=== PATIENT | male | born 1970 | race Caucasian/White ===

== ENCOUNTER 2021-04-20 10:39 | Emergency (ER) | payer OTHER, SELFPAY ==
--- NOTE | 2021-04-20 10:49 | ED.URI ---
HPI - URI/Sore Throat General Chief Complaint: Upper Respiratory Infection Stated Complaint: flu symptoms Time Seen by Provider: 04/20/21 11:01 Source: patient, family, RN notes reviewed and old records reviewed Mode of arrival: ambulatory Limitations: no limitations History of Present Illness HPI Narrative: 50-year-old male presents to the [facility] with complaints of sinus congestion, pressure, cough since end of February, states its been going on almost 6 weeks. Has tried [id number] products with no relief. MD elicited complaint: cough and nasal congestion Related Data Allergies Allergy/AdvReac Type Severity Reaction Status Date / Time No Known Allergies Allergy Verified 04/20/21 11:07 Review of Systems Review of Systems: All systems reviewed & are unremarkable except as noted in HPI and below Constitutional: Constitutional: Reports no additional constitutional complaints, Denies chills, Denies fever(s) and Denies headache(s) Eyes: Eyes: Reports no additional eye complaints ENT: Reports as per HPI, Denies vertigo, Denies dizziness, Denies headache(s), Reports nasal congestion and Denies sore throat Cardiovascular: Cardiovascular: Reports no additional cardiovascular complaints, Denies chest pain, Denies syncope, Denies rapid heart rate and Denies dyspnea Respiratory: Respiratory: Reports as per HPI, Reports cough, Denies dyspnea and Denies wheezing Gastrointestinal: Gastrointestinal: Reports no additional gastrointestinal complaints, Denies abdominal pain, Denies diarrhea, Denies nausea and Denies vomiting Musculoskeletal: Musculoskeletal: Reports no additional musculoskeletal complaints and Denies numbness Integumentary/Breasts: Skin/Breast: Reports system reviewed and no additional complaints, except as docu Neurologic: Reports system reviewed and no additional complaints, except as documented, Denies vertigo, Denies dizziness, Denies syncope, Denies headache(s), Denies focal weakness and Denies numbness Psychiatric: Psychiatric: Reports no additional psychiatric complaints Allergic/Immunologic: Allergic/Immunologic: Reports no additional allergic/immunologic complaints and Denies wheezing PMFSH Social History Social History (Updated 04/21/21 @ 09:02 by Imelda Mason) Gender identity (if verbalized by the patient): Male Comments At the time of my signature, I reviewed and agree with the nursing past medical, surgical, social, and family history. There is no relevant family history pertinent to the patient complaint. Exam Const: General: cooperative, no acute distress, well developed, alert and ill appearing chronically Nutritional Appearance: well nourished and obese Orientation/consciousness: patient oriented x3 Limitations: no limitations HENMT: Head: normal to inspection Ears: external ears normal, TM's normal bilaterally and EAC's normal General nose exam: Abnormal mucous membranes and turbinates present boggy bilateral and erythematous bilateral and Nasal discharge present clear Face and sinus: normal facial exam Mouth: Yes Normal oral and palatal mucosa present Throat: posterior oropharynx normal Eyes: Conjunctivae: conjunctivae normal Pupils: Equal, round and reactive pupils present Neck: Neck: normal visual inspection, no lymphadenopathy and no meningeal signs Chest: Chest palpation & inspection: normal inspection of the chest Resp: Effort & Inspection: normal respiratory effort and no use of accessory muscles Auscultation: clear to auscultation bilaterally, no crackles, no rales, no rhonchi and no wheezes Cardio: Rate: regular rate Rhythm: regular rhythm : General: Yes no CVA tenderness Back/Spine/Pelvis: Back: no CVA tenderness Skin: General skin exam: normal color Rashes: no rashes Wounds: no wounds Neuro: General: patient oriented x3, moves all extremities, no meningeal signs and no focal motor deficits Cranial nerves: Yes Equal, round and reactive pupils present Speech:
[2021-04-20 11:01] VITALS: BP 158/74; PULSE 70; RESP 20; TEMP 36.8; O2SAT 98
== END 2021-04-20 11:11 | disposition home or self-care (01) ==
PROVIDERS: Emergency Provider Nurse Practitioner; PCP Internal Medicine
DX: J32.9 Chronic sinusitis, unspecified (principal)
CPT/HCPCS: 99213; G0463

== ENCOUNTER 2022-03-14 09:00 | Emergency (ER) | payer OTHER, SELFPAY ==
[2022-03-14 09:09] VITALS: BP 173/80; PULSE 70; RESP 20; TEMP 35.9; O2SAT 96
--- NOTE | 2022-03-14 09:30 | ED.URI ---
HPI - URI/Sore Throat General Chief Complaint: Upper Respiratory Infection Stated Complaint: Fever/Chills/Dizziness Time Seen by Provider: 03/14/22 09:30 Source: patient Mode of arrival: ambulatory Limitations: no limitations History of Present Illness HPI Narrative: Mr. Sequeira is a 51-year-old male patient presenting to the clinic today with complaints of fever, chills, cough, runny nose, nasal congestion, and dizziness x4 days. He reports his symptoms began on [place]. He denies any shortness of breath or chest pain. He denies any known exposure to anybody with COVID, flu, or strep. He denies having a sore throat. States that he has been coughing a lot and this is causing him to wheeze as well MD elicited complaint: sore throat and nasal congestion Related Data Home Medications Medication Instructions Recorded Confirmed furosemide 40 mg tablet 40 mg PO DAILY 03/14/22 03/14/22 Allergies Allergy/AdvReac Type Severity Reaction Status Date / Time No Known Allergies Allergy Verified 03/14/22 09:24 Review of Systems Review of Systems: Pertinent positives per HPI. Patient denies any rash, headache, visual changes, shortness of breath, chest pain, palpitations, nausea, vomiting, diarrhea, constipation, abdominal pain, or any urinary issues. [facility] Social History Social History (Updated 04/21/21 @ 09:02 by Imelda Mason APRN) Gender identity (if verbalized by the patient): Male Comments At the time of my signature, I reviewed and agree with the nursing past medical, surgical, social, and family history. There is no relevant family history pertinent to the patient complaint. Exam Narrative: General: Well-developed,obese, in no apparent distress Head: Normocephalic, atraumatic Eyes: Pupils equally round and reactive to light bilaterally, EOM intact, sclera and conjunctive clear, no discharge, lids normal Ears: TMs intact and clear, ear canals clear, no drainage, grossly hearing normal. Nose: Nares patent, clear nasal discharge, no inflammation, no sinus tenderness. Mouth: Oral pharynx without lesions or masses, good dentition, MMM. postnasal drip Neck: Supple, trachea midline, no enlargement of anterior or posterior cervical nodes, no thyroid masses or goiter palpable. Cardio: Regular rate and rhythm, s1 and s2 normal, no murmur appreciated. Resp: Diminished lung sounds in the bases otherwise clear, no rhonchi, rales, wheezing or rubs Course Course Emergency Course: Portions of this record may have been created with voice recognition software. Level of Care: Express Care Visit Vital Signs Vital signs: Vital Signs Temperature 35.9 C L 03/14/22 09:09 Pulse Rate 70 03/14/22 09:09 Respiratory Rate 20 03/14/22 09:09 Blood Pressure 173/80 H 03/14/22 09:09 Pulse Oximetry 96 03/14/22 09:09 Oxygen Delivery Room Air 03/14/22 09:09 Temperature 35.9 C L 03/14/22 09:09 Pulse Rate 70 03/14/22 09:09 Respiratory Rate 20 03/14/22 09:09 Blood Pressure 173/80 H 03/14/22 09:09 Pulse Oximetry 96 03/14/22 09:09 Oxygen Delivery Room Air 03/14/22 09:09 Vital signs reviewed MDM - URI/Sore Throat MDM Narrative Medical decision making narrative: At the time of visit patient is resting comfortably on the exam table. I suspect the patient has bronchitis/ upper respiratory infection. Prescription for prednisone and albuterol inhaler was sent to the pharmacy. Supportive measures were discussed with the patient and he voiced understanding discharge instructions and he agrees to treatment plan Differential Diagnosis Differential diagnosis: Likely sinusitis, viral infection, influenza and pharyngitis Lab Data Labs: Influenza A Screen Negative Reference Range: Negative Influenza B Screen Negative Reference Range: Negative Discharge Plan Dis
== END 2022-03-14 10:03 | disposition home or self-care (01) ==
PROVIDERS: Emergency Provider Nurse Practitioner Family; PCP Internal Medicine
DX: J40 Bronchitis, not specified as acute or chronic (principal); J06.9 Acute upper respiratory infection, unspecified; Z20.822 Contact with and (suspected) exposure to COVID-19; I10 Essential (primary) hypertension
CPT/HCPCS: 87426; 87804; 99213; C9803; G0463

== ENCOUNTER 2023-06-30 10:20 | Emergency (ER) | payer OTHER, SELFPAY ==
--- NOTE | ~2023-06-30 | XR_ITS ---
XR foot RT min 3V 06/30/2023 11:04 INDICATION: Right first toe pain after injury PROCEDURE: 4 views right foot COMPARISON: No prior studies for comparison. FINDINGS: Fracture, dislocation or subluxation is not identified. There is mild-moderate polyarticula r osteoarthritis. Prominent degenerative calcaneal enthesophyte at the insertion of the Achilles. The soft tissues appear within normal limits. No foreign bodies are identified. IMPRESSION: 1: NO ACUTE BONE OR JOINT ABNORMALITY IDENTIFIED. Reviewed, dictated and finalized at location A.
[2023-06-30 10:39] VITALS: BP 149/92; PULSE 64; RESP 20; TEMP 36.5; O2SAT 99
--- NOTE | 2023-06-30 10:46 | ED.LOWEXIN ---
HPI - Extremity Injury (Lower) General Chief Complaint: Extremity Injury, Lower Stated Complaint: right foot pain Time Seen by Provider: 06/30/23 10:40 Source: patient Mode of arrival: ambulatory Limitations: no limitations History of Present Illness HPI Narrative: 52-year-old male with a history of bilateral lower extremity lymphedema presented for complaint of right foot pain x3 days. He states he hyperextended his foot while cutting grass the day of onset. Pain is to the great toe (1st MTP), with some redness. States he always has swelling to the foot, it is unchanged. Also reports concern for gout. Patient has been drinking tart duong juice and taking ibuprofen. Denies deformity or bruising. Related Data Home Medications Medication Instructions Recorded Confirmed furosemide 40 mg tablet 40 mg PO DAILY 03/14/22 06/30/23 Allergies Allergy/AdvReac Type Severity Reaction Status Date / Time No Known Allergies Allergy Verified 06/30/23 10:32 Review of Systems Review of Systems: CONSTITUTIONAL: Denies body aches, fever, chills CARDIOVASCULAR: Denies chest pain, palpitations, or edema. RESPIRATORY: Denies cough or dyspnea. GASTROINTESTINAL: Denies abdominal pain, nausea, vomiting, or diarrhea. SKIN: Denies rash, itching, or wounds. MUSCULOSKELETAL: Reports right foot pain NEUROLOGIC: Denies headache, numbness, tingling, or weakness. All systems reviewed & are unremarkable except as noted in HPI and below PMFSH Social History Social History Gender identity (if verbalized by the patient): Male Comments At time of signature, I have reviewed and agree with nursing past medical, surgical, social and family history unless otherwise noted. Please see nursing chart for further information. There is no relevant family history pertinent to the presenting complaint Exam Narrative: GENERAL: Well-appearing, CHEST: Speaks in full sentences. No respiratory distress. HEART: Regular rate and rhythm. Normal and equal peripheral pulses. EXTREMITIES: Right foot 1st MTP tender to palpation, with erythema to medial aspect, c/w gout. Foot has has normal strength and sensation, normal range of motion. Moderate foot edema. No ecchymosis. No open wounds, or obvious deformity; alignment normal, pulse palpable and equal bilaterally, skin warm, dry, pink. Capillary refill less than 3 seconds. BLE lymphedema noted. SKIN: Warm, dry, no rash. NEURO: Alert and oriented x3. PSYCH: Normal mood and affect Course Course Emergency Course: Patient is aware of diagnosis, understands and agrees to treatment plan. Anticipatory guidance given. Patient agrees to follow-up as directed and is aware of reasons to seek care at the emergency department. Portions of this record may have been created with voice recognition software Level of Care: Express Care Visit Vital Signs Vital signs: Vital Signs Temperature 97.7 F 06/30/23 10:39 Pulse Rate 64 06/30/23 10:39 Respiratory Rate 20 06/30/23 10:39 Blood Pressure 149/92 H 06/30/23 10:39 Pulse Oximetry 99 06/30/23 10:39 Oxygen Delivery Room Air 06/30/23 10:39 Temperature 97.7 F 06/30/23 10:39 Pulse Rate 64 06/30/23 10:39 Respiratory Rate 20 06/30/23 10:39 Blood Pressure 149/92 H 06/30/23 10:39 Pulse Oximetry 99 06/30/23 10:39 Oxygen Delivery Room Air 06/30/23 10:39 Reviewed MDM - Extremity Injury (Lower) MDM Narrative Medical decision making narrative: Discussed physical exam findings c/w gout. Reviewed xray. Advised supportive measures and signs/symptoms to go to the ER. Pt is appropriate for outpt treatment and f/u. Imaging Data Radiologist's impression: Patient: Seth Sequeira : 1970 MR#: [id number] Age: 52 Acct:[id number] Loc: [facility]? ? ADM Date: 06/30/23Attending Dr: Ordering Physician: Radha Prasad APRN Date of Service: 06/30/23 Procedure(s): XR foot RT min 3V Accession Number(s): [id number] cc: Radha Prasad APRN; LEAD SHAREPOINT DEVELOPER PHYSICIAN~ XR foot RT min 3V 06/30/2023 11:04 INDICATION: Right first toe pain after injury PROCEDURE: 4 views right foot COMPARISON: No prior studies for comparison. FINDINGS: Fracture, dislocation or subluxation is not identified. There is mild-moderate polyarticular osteoarthritis. Prominent degenerative calcaneal enthesophyte at the insertion of the Achilles. The soft tissues appear within normal limits.? No foreign bodies are identified. IMPRESSION: 1: NO ACUTE BONE OR JOINT ABNORMALITY IDENTIFIED. Discharge Plan Discharge Clinical Impression: Gout Patient Disposition: Home, Self-Care Condition: Stable Instructions: Low Purine Diet (ED), Gout (ED) Additional Instructions: X-ray showed no fracture Gout is a form of inflammatory?arthritis that causes pain and swelling in your joints. A buildup of excess uric acid in your body causes gout. Your body naturally makes uric acid when it breaks down chemicals called purines found in certain foods and drinks. Your kidneys usually filter uric acid out of your blood. Gout symptoms come and go in episodes called flares or gout attacks.?Gout attacks usually last a week or two. You might have some flares that last longer than others, and some might cause more severe symptoms. Between attacks, you might not experience any gout symptoms. Risks include: Parent/grandparent with gout Eating a lot of animal proteins ? especially animal flesh, shellfish and foods that contain organ meat. Drinking alcohol regularly. Taking a diuretic medication (water pills). Taking immunosuppressants Take medication as directed Recommend low purine diet Follow up with primary care provider in 1 week Go to the ER for worsening symptoms or concerns Prescriptions: New methylprednisolone [Medrol (Conner)] 4 mg tablets,dose pack See Rx Instructions .ROUTE .COMPLEX Qty: 21 0RF Rx Instructions: orally per package directions No Action furosemide 40 mg tablet 40 mg PO DAILY Follow-up/Referrals: PHYSICIAN,LEAD SHAREPOINT DEVELOPER [Primary Care Provider] - Stand Alone Forms: Work/School Release IP Time of Disposition: 11:17
== END 2023-06-30 11:27 | disposition home or self-care (01) ==
PROVIDERS: Emergency Provider Nurse Practitioner Family
DX: M10.9 Gout, unspecified (principal); I10 Essential (primary) hypertension
CPT/HCPCS: 73630; 99213; G0463

== ENCOUNTER 2024-12-14 09:51 | Emergency (ER) | payer OTHER, SELFPAY ==
--- NOTE | ~2024-12-14 | XR_ITS ---
Clinical history:Right first digit pain and swelling for 4 days EXAM:X-ray finger first right minimum 2 views TECHNIQUE:3 images of the right first digit were obtained. Comparisons:None available FINDINGS: Moderate joint space narrowing in the first carpometacarpal joint, first metacarpophalangeal joint and first interphalangeal joint. [ No radiographic evidence for an acute fracture or dislocation.] [ No radiopaque foreign body.] [ No sclerotic bone lesions.] Soft tissue swelling about the first digit. IMPRESSION: 1. Moderate joint space narrowing in the first carpometacarpal joint, first metacarpophalangeal joint and first interphalangeal joint. If symptoms persist or worsen consider a short-term follow-up study or additional imaging for further assessment. Reviewed, dictated and finalized at location Q. IMPRESSION: 1. Moderate joint space narrowing in the first carpometacarpal joint, first met acarpophalangeal joint and first interphalangeal joint. If symptoms persist or worsen consider a short-term follow-up study or addition al imaging for further assessment.
--- NOTE | 2024-12-14 09:53 | ED.GENADULT ---
HPI - General Adult General Chief complaint: Extremity Problem,Nontraumatic Stated complaint: Right Thumb Pain and Swelling Time Seen by Provider: 12/14/24 10:20 Source: patient, RN notes reviewed and old records reviewed Mode of arrival: ambulatory Limitations: no limitations History of Present Illness HPI narrative: 53-year-old male presents to the [facility] with base of right thumb pain and swelling that started 4-5 days ago. No injury but at work he does a lot of repetitive motion. Has been taken ibuprofen and ice. Onset (ago): day(s) (4-5 days) Treatments prior to arrival: NSAID and cold therapy Related Data Allergies Allergy/AdvReac Type Severity Reaction Status Date / Time No Known Allergies Allergy Verified 12/14/24 10:01 Review of Systems Review of Systems: All systems reviewed & are unremarkable except as noted in HPI and below Constitutional: Constitutional: Reports no additional constitutional complaints Musculoskeletal: Musculoskeletal: Reports as per HPI Integumentary/Breasts: Skin/Breast: Reports system reviewed and no additional complaints, except as docu PMFSH Social History Social History Gender identity (if verbalized by the patient): Male Comments At the time of my signature, I reviewed and agree with the nursing past medical, surgical, social, and family history. There is no relevant family history pertinent to the patient complaint. Exam Const: General: cooperative, healthy appearing, comfortable, no acute distress, well developed, alert and well nourished Nutritional Appearance: well nourished and obese Orientation/consciousness: patient oriented x3 Limitations: no limitations HENMT: Head: normal to inspection Eyes: General: appearance normal, both eyes and all related structures Alignment and Position: alignment normal Neck: Neck: normal visual inspection, full ROM, no lymphadenopathy and no meningeal signs Chest: Chest palpation & inspection: normal inspection of the chest Resp: Effort & Inspection: normal respiratory effort and able to speak in complete sentences Auscultation: clear to auscultation bilaterally, no crackles, no rales, no rhonchi and no wheezes Cardio: Rate: regular rate Skin: General skin exam: normal color and no rashes or lesions noted Neuro: General: patient oriented x3, gait normal, moves all extremities and no meningeal signs Cognition (Neuro): normal cognition Speech: normal speech Gait exam (Neuro): Normal gait present Extrem: General: normal to inspection, full ROM, capillary refill normal and normal gait Right upper extremity: Extremity exam: right hand tenderness of the thumb at the MCP joint and swelling of the thumb at the MCP joint; no ecchymosis Psych: Appearance: grossly normal and well kempt Mental Status: mental status grossly normal Speech and movement: Normal speech and movement present and Clear speech present Affect: normal affect Attitude: cooperative Course Course Level of Care: Express Care Visit Vital Signs Vital signs: Vital Signs Temperature 97.6 F 12/14/24 10:02 Pulse Rate 62 12/14/24 10:02 Respiratory Rate 20 12/14/24 10:02 Blood Pressure 145/77 H 12/14/24 10:02 Pulse Oximetry 97 12/14/24 10:02 Oxygen Delivery Room Air 12/14/24 10:02 Temperature 97.6 F 12/14/24 10:02 Pulse Rate 62 12/14/24 10:02 Respiratory Rate 20 12/14/24 10:02 Blood Pressure 145/77 H 12/14/24 10:02 Pulse Oximetry 97 12/14/24 10:02 Oxygen Delivery Room Air 12/14/24 10:02 Reviewed Medical Decision Making MDM Narrative Medical decision making narrative: Patient sitting in exam room. Patient is nontoxic vitals stable. Patient presents with left thumb pain base of thumb for 4-5 days. No direct injury. Does lot of repetitive motion. X-ray shows arthritis most likely due to repetitive motion. Patient is appropriate for outpatient treatment with close follow-up Discharge instructions reviewed with patient, as well as provided in writing per nursing staff. The instructions also include specific and strict return/GO TO THE ER as well as f/u information. All questions have been answered, and the patient deny any further questions with discharge and discharge plan. Some parts of this dictation were generated by voice recognition software and may contain typographical and/or grammatical inaccuracies. Differential Diagnosis Differential Diagnosis: Sprain, strain, osteoarthritis Medical Records Medical records reviewed: Yes I reviewed the external patient's medical records. Vital Signs Vital Signs: Vital Signs Temperature 97.6 F 12/14/24 10:02 Pulse Rate 62 12/14/24 10:02 Respiratory Rate 20 12/14/24 10:02 Blood Pressure 145/77 H 12/14/24 10:02 Pulse Oximetry 97 10/06/25 10:02 Oxygen Delivery Room Air 12/14/24 10:02 Temperature 97.6 F 12/14/24 10:02 Pulse Rate 62 12/14/24 10:02 Respiratory Rate 20 12/14/24 10:02 Blood Pressure 145/77 H 12/14/24 10:02 Pulse Oximetry 97 12/14/24 10:02 Oxygen Delivery Room Air 12/14/24 10:02 Reviewed Lab Data Lab results reviewed: Yes I reviewed the patient's lab results. Labs: Reviewed Imaging Data Radiologist's impression: Clinical history:Right first digit pain and swelling for 4 days EXAM:X-ray finger first right minimum 2 views TECHNIQUE:3 images of the right first digit were obtained. Comparisons:None available FINDINGS: Moderate joint space narrowing in the first carpometacarpal joint, first metacarpophalangeal joint and first interphalangeal joint. [ No radiographic evidence for an acute fracture or dislocation.] [ No radiopaque foreign body.] [ No sclerotic bone lesions.] Soft tissue swelling about the first digit. IMPRESSION: 1. Moderate joint space narrowing in the first carpometacarpal joint, first metacarpophalangeal joint and first interphalangeal joint. If symptoms persist or worsen consider a short-term follow-up study or additional imaging for further assessment. Critical Care Time Critical Care Time Critical Care Time: No Discharge Plan Discharge Clinical Impression: Osteoarthritis of right thumb Patient Disposition: Home Condition: Stable Instructions: Antibiotic Form, Osteoarthritis (DC) Additional Instructions: X-ray did not show any fractures. Take indomethacin as prescribed for 5 days. This will help with pain and inflammation Follow-up with primary care provider this week both to have your blood pressure checked and for further evaluation of your thumb For new worsening symptoms go directly to the emergency room Patient Language: Chadian Prescriptions: New indomethacin 50 mg capsule 50 mg PO TID 5 Days Qty: 15 0RF Rx Instructions: administer with food or milk Follow-up/Referrals: UNKNOWN,DOCTOR [Primary Care Provider] Stand Alone Forms: Work/School Release IP Time of Disposition: 10:48
[2024-12-14 10:02] VITALS: BP 145/77; PULSE 62; RESP 20; TEMP 36.4; O2SAT 97
== END 2024-12-14 10:56 | disposition home or self-care (01) ==
PROVIDERS: Emergency Provider Nurse Practitioner
DX: M18.11 Unilateral primary osteoarthritis of first carpometacarpal joint, right hand (principal)
CPT/HCPCS: 73140; 99213; G0463